=== PATIENT | female | born 1965 | race Caucasian/White ===

== ENCOUNTER → 2017-04-05 | Outpatient (CLI) | payer BC ==
--- NOTE | 2017-04-05 08:03 | US ---
EXAMINATION TYPE: US gallbladder DATE OF EXAM: 04/05/2017 COMPARISON: NONE CLINICAL HISTORY: R10.9 Abdomen Pain. RUQ pain EXAM MEASUREMENTS: Liver Length: 17.3 cm Gallbladder Wall: 0.2 cm CBD: 0.6 cm Right Kidney: 9.6 x 4.2 x 4.8 cm Pancreas: Tail obscured by overlying bowel gas Liver: Coarse, heterogeneous echotexture. Measuring upper limits of normal Gallbladder: wnl Evidence for sonographic Denton's sign: No CBD: Measuring upper limits of normal, distal portion obscured by bowel gas Right Kidney: No hydronephrosis or masses seen Visualized pancreas is within normal limits. Visualized liver is heterogeneous in appearance. Evaluat ion for focal masses is suboptimal due to the heterogeneity. Finding likely on basis of diffuse fatty infiltration. Underlying hepatocellular disease is not excluded. IMPRESSION: 1. No gallstones or ultrasound evidence for acute cholecystitis. 2. Heterogeneous hyperechoic appearance of liver favors product of diffuse fatty infiltration, underl opal hepatocellular disease is not excluded. Clinical and liver lab correlation advised.
--- NOTE | 2017-04-06 09:22 | MM ---
Reason for exam: screening (asymptomatic). Last mammogram was performed 9 years and 6 months ago. History: Patient is postmenopausal and had first child at age 30. Took hormonal contraceptives beginning at age 21. Physical Findings: A clinical breast exam by your physician is recommended on an annual basis and results should be correlated with mammographic findings. MG 3D Screening Mammo W/Cad Bilateral CC and MLO view(s) were taken. No prior studies available for comparison. There are scattered fibroglandular densities. No suspicious abnormality. ASSESSMENT: Negative, BI-RAD 1 RECOMMENDATION: Routine screening mammogram of both breasts in 1 year.
== END | disposition home or self-care (01) ==
LOC: RADUSWWP 07:15
PROVIDERS: ATTEND Family Medicine
DX: Z12.31 Encounter for screening mammogram for malignant neoplasm of breast (principal); R10.9 Unspecified abdominal pain
CPT/HCPCS: 77063; 76705; G0202

== ENCOUNTER 2017-05-19 11:58 | Day surgery (SDC) | payer BC ==
[2017-05-17 09:23] VITALS: BMI 40.5
[~2017-05-19 11:58] MED LIST: LACTATED RINGERS 1,000 ML IV SCH
[2017-05-19 12:47] VITALS: RESP 16; TEMP 98.3
[2017-05-19] MEDS ORDERED: LIDOCAINE 1% 20 ML VIAL (10MG/ML) FOR IV START INTRADERMA ONE (12:52)
[2017-05-19 12:58] LABS: Glucose,Whole Blood 116 mg/dL (75-99)
[2017-05-19] MEDS ORDERED: LIDOCAINE 1% INJ 10MG/ML (20 ML MDV) ONE (12:59)
[2017-05-19] MEDS ORDERED: PROPOFOL 10 MG/ML 20 ML VIAL IV ONE (12:59)
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
[2017-05-19 14:00] VITALS: BP 152/98; PULSE 82
--- NOTE | 2017-05-19 17:08 | P.PCN ---
Date of Procedure: 05/19/17 Procedure(s) Performed: PREOPERATIVE DIAGNOSIS: Colon cancer screening POSTOPERATIVE DIAGNOSIS: Large cecal polyp, rectal polyp PROCEDURE: Colonoscopy biopsy and snare polypectomy ANESTHESIA: MAC SURGEON: Noah Ness M.D. SPECIMENS: Polyps ENDOSCOPIC PROCEDURE: The patient was placed on the endoscopy table in the left decubitus position. The Olympus colonoscope was inserted into the anus and passed under direct visualization to the base of the cecum. The patient had elevation of the mucosa at the base of the cecum. I believe that this was just lateral to the appendiceal orifice. This extended up to the valve itself where there was a more pedunculated portion of polypoid tissue. This was somewhat friable. This appeared more likely consistent with a adenomatous polyp rather than invasive cancer. 7-8 separate cold biopsies were taken of that area. This was not amenable to endoscopic removal in my opinion. The remainder of the ascending transverse descending and sigmoid colon appeared normal. In the rectum a small polyp was removed using the snare with cautery technique. There was no visible diverticulosis present. Digital rectal examination was normal. The patient was taken to the recovery room in stable condition per anesthesia guidelines. RECOMMENDATIONS: Await biopsy results. Patient will follow-up with me in the office. She did describe some right lower quadrant discomfort recently. This is been going on for the last 2 months. Based on pathology findings we'll consider CT abdomen and pelvis. Will likely require elective resection.
== END 2017-05-19 14:15 | disposition home or self-care (01) ==
LOC: ORWHC2ENDO 11:58
PROVIDERS: ATTEND Surgery
DX: Z12.11 Encounter for screening for malignant neoplasm of colon (principal); D12.0 Benign neoplasm of cecum; K62.1 Rectal polyp; Z83.71 Family history of colonic polyps
CPT/HCPCS: 88305; 45380; 45385; J2001; J2704

== ENCOUNTER → 2017-06-01 | Outpatient (CLI) | payer BC ==
[2017-06-01 07:18] LABS: CH 28.3; CHCM 31.9; HCT 39.7 % (34.0-46.0); HDW 2.58; MCH 29.1 pg (25.0-35.0); MCHC 32.7 g/dL (31.0-37.0); Mean Platelet Volume 7.6; RBC 4.46 m/uL (3.80-5.40); RDW 14.2 % (11.5-15.5); WBC 6.2 k/uL (3.8-10.6)
[2017-06-01 07:42] LABS: ALT 47 U/L (9-52); AST 29 U/L (14-36); Alkaline Phosphatase 80 U/L (38-126); Anion Gap 10 mmol/L; Blood Urea Nitrogen 16 mg/dL (7-17); Carbon Dioxide 25 mmol/L (22-30); Chloride 103 mmol/L (98-107); Glucose 242 mg/dL (74-99); Non-African American GFR(MDRD) >60 (>60 ml/min/1.73 sqM); Potassium 4.4 mmol/L (3.5-5.1); Sodium 138 mmol/L (137-145); Total Bilirubin 0.4 mg/dL (0.2-1.3); Total Protein 7.4 g/dL (6.3-8.2)
--- NOTE | 2017-06-01 10:03 | CT ---
EXAMINATION TYPE: CT abdomen pelvis w con DATE OF EXAM: 06/01/2017 COMPARISON: NONE INDICATION: Cecal mass, abn colonoscopy, RLQ pressure DLP: 1667 mGycm, Automated exposure control for dose reduction was used. CONTRAST: 100 mL of Omnipaque 300. Study performed with Oral Contrast TECHNIQUE: Axial images were obtained from above the diaphragm to the pubic rami in the axial plane a t 5 mm thick sections. Reconstructed images are reviewed on the computer in the coronal plane. FINDINGS: Limited CT sections are obtained the lung bases. The lung bases are clear. CT ABDOMEN: Liver: No discrete masses or cysts. Some mild fatty infiltration may be present with diminished densi ty in relation to the spleen. Spleen: Normal Pancreas: Normal Adrenal glands: The adrenal glands are normal. Gallbladder: Normal Kidneys: No masses are evident. No hydronephrosis is present. No cysts are present. Delayed images were obtained through the kidneys, which remain unremarkable. Aorta: Normal Inferior vena cava: Normal. CT PELVIS: Cecal mass is evident on the examination. Ileocecal valve has some mild prominence. Loops of bowel in the abdomen and pelvis otherwise appear unremarkable. There is an incomplete distention of small bow el loops limiting the evaluation. Oral contrast extends to the level of the distal sigmoid colon. Fec al debris is within the rectum. There are loops of bowel which are incompletely distended or lack ora l contrast limiting their evaluation. Appendix: Normal as visualized. Urinary bladder: Normal. Genitourinary structures: Uterus and adnexal regions are unremarkable. Osseous structures: No suspicious lytic or sclerotic lesions. Some sacroiliac joint degenerative benitez ges are present. Mild facet degenerative changes within the lumbar spine. IMPRESSIONS: 1. 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 This measures roughly 2.4 x 1.8 cm in size. 2. Moderate fatty infiltration liver.
== END | disposition home or self-care (01) ==
LOC: RADCTMAIN 06:43
PROVIDERS: ATTEND Surgery
DX: C18.0 Malignant neoplasm of cecum (principal); K76.0 Fatty (change of) liver, not elsewhere classified
CPT/HCPCS: 80053; 82378; 85027; 74177; 36415; Q9967

== ENCOUNTER → 2023-06-30 | Outpatient (CLI) | payer BC ==
--- NOTE | 2023-07-03 14:31 | MM ---
Reason for Exam: Screening (asymptomatic). Last mammogram was performed 6 year(s) and 3 month(s) ago. Patient History: Menarche at age 12. First Full-Term at age 30. Late child-bearing (after 30). Postmenopausal. Hormonal Contraceptives, from age 21 until age 26. Sister had breast cancer. Risk Values: Alma 5 year model risk: 2.6%. NCI Lifetime model risk: 13.1%. Prior Study Comparison: 04/21/2004 Bilateral Screening Mammogram, [facility]. 10/11/2007 Bilateral Diagnostic Mammogram, [facility]. 04/05/2017 Bilateral Screening Mammogram, [facility]. Tissue Density: There are scattered fibroglandular densities. Findings: Analyzed By CAD. Pattern appears symmetrical and stable. No significant interval changes are evident. Benign calcifications within the right breast. No suspicious groups of microcalcifications, spiculated or lobular masses, architectural distortion or other secondary signs of malignancy are mammographically apparent. Overall Assessment: Benign, BI-RAD 2 Management: Screening Mammogram of both breasts in 1 year. A negative mammogram report should not preclude additional follow up of suspicious palpable abnormalities. Patient should continue monthly self breast exam. A clinical breast exam by your physician is recommended on an annual basis and results should be correlated with mammographic findings. Electronically signed and approved by: Glenroy Weber D.O. Radiologis
== END | disposition home or self-care (01) ==
LOC: RADMAMWWP 07:01
PROVIDERS: ATTEND Family Medicine
DX: Z12.31 Encounter for screening mammogram for malignant neoplasm of breast (principal); Z78.0 Asymptomatic menopausal state; Z80.3 Family history of malignant neoplasm of breast
CPT/HCPCS: 77063; 77067

== ENCOUNTER → 2024-10-03 | Outpatient (CLI) | payer BC ==
--- NOTE | 2024-10-03 11:41 | MM ---
Reason for Exam: Screening (asymptomatic). Last mammogram was performed 1 year(s) and 3 month(s) ago. Patient History: Menarche at age 12. First Full-Term at age 30. Late child-bearing (after 30). Postmenopausal. Hormonal Contraceptives, from age 21 until age 26. Sister had breast cancer. Risk Values: Alma 5 year model risk: 2.7%. NCI Lifetime model risk: 12.7%. Prior Study Comparison: 10/11/2007 Bilateral Diagnostic Mammogram, [facility]. 04/05/2017 Bilateral Screening Mammogram, [facility]. 06/30/2023 Bilateral MG 3D screening mammo w/cad, [facility]. Tissue Density: The breasts are heterogeneously dense, which may obscure small masses. Findings: Analyzed By CAD. There is no suspicious group of microcalcifications or new suspicious mass in either breast. Overall Assessment: Negative, BI-RAD 1 Management: Screening Mammogram of both breasts in 1 year. . Patient should continue monthly self-breast exams. A clinical breast exam by your physician is recommended on an annual basis. This exam should not preclude additional follow-up of suspicious palpable abnormalities. Note on Alma scores and lifetime risk: 1. A Alma score greater than 3% is considered moderate risk. If this is the case, consider specialist referral to assess eligibility for a risk reducing agent. 2. If overall lifetime risk for the development of breast cancer is 20% or higher, the patient may qualify for future screening with alternating mammogram and breast MRI. [facility], , 10/03/2024 11:38 AM. Electronically signed and approved by: Andrzej Moralez M.D.
== END | disposition home or self-care (01) ==
LOC: RADMAMWWP 11:13
PROVIDERS: ATTEND Family Medicine
DX: Z12.31 Encounter for screening mammogram for malignant neoplasm of breast (principal); R92.333 Mammographic heterogeneous density, bilateral breasts; Z78.0 Asymptomatic menopausal state; Z80.3 Family history of malignant neoplasm of breast
CPT/HCPCS: 77063; 77067